=== PATIENT | female | born 1945 | race Caucasian/White ===

== ENCOUNTER 2016-05-24 10:12 | Inpatient (IN) | payer MEDICARE, OTHER ==
--- NOTE | ~2016-05-24 | DS ---
Discharge Summary [facility] [address] [place]. [address] NAME: FARIHA CROWDER : 45 STATUS : DIS IN PAT#: [id number] AGE: 70 ADM/REG DATE : 05/24/16 MR#: [id number] REPORT SERV DATE: 06/06/16 DICTATED BY: ZHANG GILLIAM DATE: 06/05/16 REPORT STATUS : Draft TRANSCRIBED BY: MODL DATE: 06/05/16 ADMISSION DATE: 05/24/2016 DISCHARGE DATE: 06/05/2016 ADDENDUM: This dictation is an addition to interim discharge summary dictated by Dr. Voss on 05/29/2016. I assumed care of the patient on 05/30/2016. At the time of my assumption of care, it was noted that the patient did have E coli ESBL, E coli UTI, as well as ESBL E coli bacteremia. Given her bacteremia per recommendations, the patient needed to be on IV antibiotics for a minimum of 10 days. At the time of my assumption of care, the patient was on antibiotic therapy for about three to four days. Therefore, given that fosfomycin is a once in 72 hour medication, that would not have been an acceptable management for her bacteremia. The alternative plan was to discharge the patient to a fdc for her to receive antibiotics; however, the patient adamantly refused going to a fdc. Given that the patient was kept in-house for completion of antibiotic therapy, today makes it day 10 of 10 of IV antibiotic therapy with meropenem. Her repeat blood culture is negative. The patient has remained hemodynamically stable. Her white count also has remained within normal limits. Given completion of IV antibiotic therapy, her negative repeat blood culture results, and her hemodynamic stability, the patient will be discharged home today. Plan has been discussed with the patient, who voices understanding and is agreeable with that plan. DISCHARGE DIAGNOSES: 1. Extended-spectrum beta-lactamase Escherichia coli bacteremia. 2. Extended-spectrum beta-lactamase Escherichia coli urinary tract infection. 3. Chronic obstructive pulmonary disease. 4. Hypertension. 5. Hypothyroidism. DISCHARGE PHYSICAL EXAMINATION: VITAL SIGNS: 115/55, pulse of 58, respiration 18, O2 saturation on 2 to 3 L nasal cannula 97%. GENERAL: The patient is lying in bed, in no acute distress. Appears stated age. HEENT: Normocephalic, atraumatic. Extraocular motors intact. Moist oral mucosa. NECK: Trachea midline and symmetric. No thyromegaly. No JVD noted. CHEST: Nontender to palpation. CARDIOVASCULAR: Regular rate and rhythm. S1, S2. No murmurs, rubs, or gallops. LUNGS: The patient had normal respiratory effort. Anterior lung guallpa clear to auscultation bilaterally. ABDOMEN: Positive bowel sounds. Nontender. Nondistended. EXTREMITIES: No cyanosis, no clubbing, no edema. DISCHARGE MEDICATIONS: Amlodipine 5 mg p.o. daily, aspirin 81 mg p.o. at bedtime, atorvastatin 80 mg p.o. at bedtime, folic acid 1 mg p.o. daily, Synthroid 75 mcg p.o. daily, lisinopril 20 mg p.o. daily, Advair one puff inhalation twice a day, vitamin B1 one tab daily, nitroglycerin 0.4 mg sublingual p.r.n., albuterol 3 mg inhalation four times a day p.r.n. DISPOSITION: The patient will be discharged home with home health. Discharge Summary [address] [address] NAME: FARIHA CROWDER : 45 STATUS : DIS IN PAT#: [id number] AGE: 70 ADM/REG DATE : 05/24/16 MR#: [id number] REPORT SERV DATE: 06/06/16 DICTATED BY: ZHANG GILLIAM DATE: 06/05/16 REPORT STATUS : Draft TRANSCRIBED BY: CLARK DATE: 06/05/16 ACTIVITY: As tolerated. DIET: The patient will have a regular diet. Greater than 30 minutes was spent planning discharge, dictation of note, medication reconciliation, discussion of care with the immigration case manager and nursing staff. DEBORAH/CLARK Zhang Gilliam MD / [id number] CC: MD ELVIN Cabrera
--- NOTE | ~2016-05-24 | HP ---
History And Physical [facility] [id number] [place]. [address] NAME: FARIHA CROWDER : 45 STATUS : ADM IN PAT#: [id number] AGE: 70 ADM/REG DATE : 05/24/16 MR#: [id number] REPORT SERV DATE: 05/24/16 DICTATED BY: TERRANCE BURNETT DATE: 05/24/16 REPORT STATUS : Draft TRANSCRIBED BY: MODDaniela DATE: 05/24/16 DATE OF ADMISSION: 05/24/2016 CHIEF COMPLAINT: Weakness, confusion, and hypokalemia. HISTORY OF PRESENT ILLNESS: The patient is a 70-year-old female. She apparently has a past medical history significant for some degree of anoxic brain injury. She has COPD and tobacco abuse. She has remote history of coronary artery disease and possible remote MD. She also has a past history significant for chronic arthritis, hypothyroidism, and an abdominal aortic aneurysm. She is brought here today by her family for several issues. They state that after her last hospitalization here, she was discharged to rehab and she has been home from rehab for three to four weeks. They state that she was unable to walk during her time at rehab, and since returning home, she has been assisted with transfers from the bed to wheelchair, but otherwise has been nonambulatory. History is from her family, they state last evening she seemed to be a little more combative than normal, getting more easily agitated, and over the past several days, she has declined much p.o. intake. This morning around 0430 hours, her mother assist her. She was able to answer questions briefly, but seem to be "drawn up" on the right side. When this did not resolve, additional family members evaluated and were concerned about a stroke and brought her to the emergency department. Her CT of the head is currently pending. The patient states that she does not remember anything about this morning, but as far as her mental faculties go, she was able to provide me with her complete past medical and surgical history, and was somewhat oriented to place and time. Because of her previous history of hypoxic brain damage, it is a little difficult to assess her underlying deficit, but the family was concerned about her episode this morning. Also, noted she had an elevated troponin on her lab work today. The patient denies any history of chest pain over the past several days and is currently denying any chest pain. She has apparently not been following up routinely with the communication skills instructor. She may have had a cardiac event as remote as 2001. Family is uncertain. PAST MEDICAL HISTORY: As covered above. PAST SURGICAL HISTORY: Hysterectomy, cholecystectomy, and bladder tack. CURRENT MEDICATIONS: Albuterol nebulizer t.i.d., Norvasc 5, aspirin 81, Advair 250/50 one puff twice a day, folic acid 1 mg, Synthroid 75, Prinivil 20, nitroglycerin 0.4, and vitamin B one. ALLERGIES: PENICILLIN, ALSO CONTRAST DYE, AND BENADRYL. FAMILY HISTORY: Father had a stroke. Siblings have heart disease. SOCIAL HISTORY: She is a one to one and a half pack per day. No EtOH. REVIEW OF SYSTEMS: HEENT: The patient is currently denying headache or dizziness. CARDIOVASCULAR: She is currently denying chest pain or palpitations. History And Physical [address] [address] NAME: FARIHA CROWDER : 45 STATUS : ADM IN [facility]#: [id number] AGE: 70 ADM/REG DATE : 05/24/16 MR#: [id number] REPORT SERV DATE: 05/24/16 DICTATED BY: TERRANCE BURNETT DATE: 05/24/16 REPORT STATUS : Draft TRANSCRIBED BY: CLARK DATE: 05/24/16 PULMONARY: She has a chronic smoker's cough, but nothing out of the ordinary. GI: Chief complains of no appetite. : She is not currently having any dysuria. She normally is apparently somewhat incontinent and wears Depend. NEUROMUSCULOSKELETAL: She complains for generalized arthritis. Otherwise review of systems is negative. PHYSICAL EXAMINATION: VITAL SIGNS: BP 134/68, pulse 65, temperature 97.9 on 2 L. GENERAL: She is awake. She is alert. She does answer questions appropriately. She got the year right. She got her birthday right. Her speech is intelligible and unslurred HEENT: Normocephalic, atraumatic. Sclerae nonicteric. NECK: Supple. HEART: Regular rate and rhythm. LUNGS: Shows some generalized decreased breath sounds throughout. ABDOMEN: Nontender. Nondistended. EXTREMITIES: No clubbing, cyanosis, or edema. NEUROLOGICAL: No obvious cranial nerve deficits. She is able to move herself in bed and roll. She has at least 3+ lower extremity strength being able to move her legs off the bed with right somewhat stronger than the left. LABORATORY DATA: Sodium 142, potassium 2.8, chloride 105, CO2 of 25, BUN and creatinine are 13 and 0.57, glucose of 100, calcium 7.9, and magnesium is 1.5. Troponin is 2.12. BNP is 203.6. White count is 8.7, H and H are 12.8 and 36.1, and platelets of 240. CT of the abdomen and pelvis showed her aneurysm is unchanged, otherwise negative. Chest x-ray showed cardiomegaly, otherwise negative. EKG showed a prolonged QT. No acute ST changes. Ammonia, urinalysis, and CT of the brain are currently pending. ASSESSMENT: Confusion this morning. Some change in personality. Elevated troponin without chest pain. Hypomagnesemia, hypokalemia, and recent medication noncompliance over the past two to three days being out of medicines. PLAN: 1. The patient is being admitted. 2. We will await the results for CT scan. She did have a fall at home within the past several days. If her CT is negative and her aneurysm is unchanged until her cardiac situation sorted out with a troponin of 2, she would probably be a candidate for anticoagulants. We will replace her magnesium. We will replace her potassium. We will continue to have PT evaluate and assess. Uncertain as to whether her mental status is truly changed whether may be secondary to other medical problems. We will await her current pending tests for further evaluation. RYAN/CLARK History And Physical [address] [address] NAME: FARIHA CROWDER : 45 STATUS : ADM IN [facility]#: [id number] AGE: 70 ADM/REG DATE : 05/24/16 MR#: [id number] REPORT SERV DATE: 05/24/16 DICTATED BY: TERRANCE BURNETT DATE: 05/24/16 REPORT STATUS : Draft TRANSCRIBED BY: CLARK DATE: 05/24/16 Terrance Burnett M.D. / [id number] CC: ELVIN ESPINO
--- NOTE | ~2016-05-24 | CN ---
Consultation Report [facility] [address] [place]. [address] NAME: FARIHA CROWDER : 45 STATUS : ADM IN PAT#: [id number] AGE: 70 ADM/REG DATE : 05/24/16 MR#: [id number] REPORT SERV DATE: 05/24/16 DICTATED BY: SAJI NATHAN DATE: 05/24/16 REPORT STATUS : Draft TRANSCRIBED BY: CLARK DATE: 05/24/16 DATE OF CONSULTATION: 05/24/2016 REASON FOR CONSULTATION: Troponinemia. HISTORY OF PRESENT ILLNESS: Ms. Crowder is a 70-year-old female with an extensive medical history, including CAD status post remote PCI, hypertension, active tobacco smoking (two packs per day or more), metabolic encephalopathy secondary to hypothyroidism in the recent past and baseline generalized weakness/debility, who was brought in by her family today given concerns for progressive weakness and debility at home after leaving rehab about one month ago. Per her and her family, who are poor historians collectively, she left rehab not in great shape. When at home, she has been fully nonambulatory and completely dependent on family members to complete her ADLs. This has progressed such that she has become more and more debilitated over the past one month as well as somewhat altered in mental status most recently, prompting presentation to [facility] for further evaluation and care. Here, her labs were checked and she was found to have a troponin of 2.1, prompting consultation today. In speaking with her, she denies having any chest pains or chest pressures whatsoever over the past month. She has not had any symptoms that are cardiac as far as she can tell. Her main issues include generalized weakness, which is a longstanding and progressive problem for her, as well as ongoing coughing in the setting of heavy tobacco smoking that is active. PAST MEDICAL HISTORY: As above. ALLERGIES: BENADRYL, CONTRAST DYE, AND PENICILLIN. FAMILY HISTORY: Noncontributory for premature cardiovascular disease. SOCIAL HISTORY: As above. HOME MEDICATIONS: 1. Albuterol. 2. Norvasc. 3. Aspirin. 4. Advair. 5. Folic acid. 6. Synthroid. 7. Prinivil. 8. Nitrostat as needed. 9. Vitamin B1. REVIEW OF SYSTEMS: As above, all other systems otherwise negative. PHYSICAL EXAMINATION: VITAL SIGNS: Blood pressure 125/74, temperature 97.9, pulse in the 50s to 60s on telemetry Consultation Report [facility] [address] [place]. [address] NAME: FARIHA CROWDER : 45 STATUS : ADM IN PAT#: [id number] AGE: 70 ADM/REG DATE : 05/24/16 MR#: [id number] REPORT SERV DATE: 05/24/16 DICTATED BY: SAJI NATHAN DATE: 05/24/16 REPORT STATUS : Draft TRANSCRIBED BY: CLARK DATE: 05/24/16 (sinus rhythm). GENERAL: Poor historian, no acute distress, well developed, well nourished. NEURO: Awake, alert and oriented x3; no focal deficits, appropriate mood. HEENT: Moist mucous membranes, anicteric sclerae, no nasal discharge. NECK: No JVD, no carotid bruit. RESPIRATORY: Constant coughing, diminished breath sounds throughout, occasional wheezes heard throughout. CARDIAC: Regular rate and rhythm. Normal S1 and S2. No murmurs, rubs, or gallops. ABD: Soft, nontender, nondistended, no rebound or guarding. EXTREMITIES: Warm, dry, 1+ pulses bilaterally in the lower extremities. SKIN: Grossly intact without obvious active rash. PERTINENT TEST FINDINGS: Chest x-ray negative for acute cardiopulmonary process. White blood cell count 8.7, hemoglobin 11.8, troponin 2.1, creatinine 0.57, potassium 2.8, albumin 2.3, magnesium 1.5, BNP 204. CT of the head without acute abnormality, CK 64, myoglobin 46. EKG: Sinus rhythm, normal mean QRS axis. No ischemic changes. No pathologic Q-waves. IMPRESSION AND PLAN: Ms. Crowder is a 70-year-old female with history of coronary artery disease status post remote percutaneous coronary intervention, active heavy tobacco smoking (two packs per day), bed ridden/nonambulatory, and poor historian, who presents with nonspecified symptoms of generalized weakness, coughing, and arm contracted per patient and family that have all been progressive over the past four weeks prompting presentation today, with an incidental troponin of 2.1, normal CK and normal MB fractions. She also has no ischemic changes on her EKG as well as no cardiac symptoms whatsoever as far as I can discern. Accordingly, I have the following recommendations. Trend enzymes. I believe this is a noncardiac elevation in enzymes. Her next troponin just resulted at 1.8, which is already down trending. She has no ischemic changes on her EKG, but we will recheck an EKG tomorrow morning. In the meantime, it will be fine to continue heparin drip until further enzymes and clinical data are ascertained. Outside of this, I highly recommend repleting electrolytes, in particular her potassium and magnesium. In addition, checking a TSH as well as a free T4 given that she has had a recent metabolic encephalopathy from markedly abnormal thyroid levels in February of this year. At that point in time, she also had significant weakness and generalized debility, and these were attributed at that time to poor control of her thyroid hormone. Finally, it will be helpful to check an echocardiogram for general assessment of her cardiac function. I have spoken with the family and they are fully in agreement with medical management of her cardiac issues at this point in time. VR/MODL Saji Nathan MD / [id number] Consultation Report [address] [address] NAME: FARIHA CROWDER : 45 STATUS : ADM IN PAT#: [id number] AGE: 70 ADM/REG DATE : 05/24/16 MR#: [id number] REPORT SERV DATE: 05/24/16 DICTATED BY: SAJI NATHAN DATE: 05/24/16 REPORT STATUS : Draft TRANSCRIBED BY: MODL DATE: 05/24/16 CC: MD SRINIVAS Lynne PAUL E
--- NOTE | ~2016-05-24 | IDS ---
Interim Discharge Summary [facility] [address] [place]. [address] NAME: FARIHA CROWDER : 45 STATUS : ADM IN [facility]#: [id number] AGE: 70 ADM/REG DATE : 05/24/16 MR#: [id number] REPORT SERV DATE: 05/29/16 DICTATED BY: DEMOND VOSS DATE: 05/29/16 REPORT STATUS : Draft TRANSCRIBED BY: MODL DATE: 05/29/16 ADMISSION DATE: 05/24/2016 DISCHARGE DATE: REASON FOR ADMISSION: ESBL E coli bacteremia, secondary to urinary tract infection, and toxic encephalopathy. HISTORY OF PRESENT ILLNESS: Please refer to Dr. Whipple's history and physical dated 05/25/2016 for complete details regarding the patient's admission. The patient is admitted to Hospitalist Service for management several issues. 1. Toxic encephalopathy, likely due to infection, this was resolved on day two of hospitalization. 2. ESBL E coli bacteremia, secondary to urinary tract infection, no sepsis. The patient has a history of having urinary tract infections. UA was positive. She grew out positive blood cultures on day #2, she was already on Rocephin starting on 05/24/2016, she had remained on Rocephin through 05/27/2016, until her blood cultures came back positive for being an ESBL E coli, for which she was then started on meropenem. She is currently on day three of meropenem at the time of this dictation. Her UA came back as being also positive for ESBL E coli and I have checked in with pharmacy and case management. The patient can be discharged with fosfomycin when she is medically stable. Repeat blood cultures so far are no growth to date, however, it is only been two days, given the fact that she may not have been appropriately treated since day #1. It would be best to make sure that her final urine cultures are negative and we have cleared her bacteremia. 3. Type 2 demand ischemia. The patient presented with a mildly elevated troponin, likely due to demand ischemia. [facility] was consulted and recommended getting an echocardiogram, which was done on 05/25/2016, which showed normal left EF of 60%. There was mild diastolic dysfunction. There was normal right ventricular chamber size and systolic function, trivial valve regurgitation, trivial pericardial effusion. 4. COPD without exacerbation. This has been stable. 5. History of thalamic CVA. PT recommended discharging her home when she is medically stable. DISPOSITION: Anticipate her home maybe on Sunday with fosfomycin. Case management is looking to try it here. Further disposition per oncoming hospitalist starting 05/30/2016. Thank you very much. MARY/CLARK Demond Voss MD / [id number] Interim Discharge Summary [address] [address] NAME: FARIHA CROWDER : 45 STATUS : ADM IN [facility]#: [id number] AGE: 70 ADM/REG DATE : 05/24/16 MR#: [id number] REPORT SERV DATE: 05/29/16 DICTATED BY: DEMOND VOSS DATE: 05/29/16 REPORT STATUS : Draft TRANSCRIBED BY: CLARK DATE: 05/29/16 CC: MD SRINIVAS Cabrera PAUL E
[~2016-05-24 10:12] MED LIST: ASAB PO; B12250T PO; CAT2 PO; CAT3 PO; KLONO1 PO; LEVOTHYROXIN112 MCG PO; LOP50 PO; LORTAB10 PO; NITROSTAT0.4 MG SL; PRIN20 PO; PROVENTSOL INH; VENTOLIN HFA INH; [UNRECOGNIZED DRUG - OTHER] PO
[2016-05-24 10:55] LABS: BASOPHILS 0.1 %; BASOPHILS ABSOLUTE 0.01 10/3/uL (0.0-0.16); EOSINOPHILS 0.1 %; EOSINOPHILS ABSOLUTE 0.01 10/3/uL (0.0-0.53); HEMATOCRIT 36.1 % (36.0-48.0); HEMOGLOBIN 11.8 g/dL (12.0-16.0); IMMATURE GRANULOCYTES 0.2 %; IMMATURE GRANULOCYTES ABSOLUTE 0.02 10/3/uL (0.0-0.11); LYMPHOCYTES 2.2 %; LYMPHOCYTES ABSOLUTE 0.19 10/3/uL (0.67-4.30); MEAN CORPUS HGB CONC 32.7 g/dL (32.0-36.0); MEAN CORPUSCULAR HEMOGLOB 28.3 pg (26.0-34.0); MEAN CORPUSCULAR VOLUME 86.6 fL (80-100); MEAN PLATELET VOLUME 8.9 fL (9.2-13.0); MONOCYTES 5.3 %; MONOCYTES ABSOLUTE 0.46 10/3/uL (0.21-1.20); NEUTROPHILS 92.1 %; NEUTROPHILS ABSOLUTE 8.04 10/3/uL (2.02-8.40); RBC DISTRIBUTION WIDTH 14.6 % (12.0-16.0); RED CELL COUNT 4.17 10/6/uL (4.0-5.6); WHITE BLOOD CELLS 8.7 10/3/uL (4.5-10.5)
[2016-05-24 10:57] LABS: MANUAL DIFF NO %; PLATELET COUNT 240 10/3/uL (150-400)
[2016-05-24 11:02] LABS: INTERNATIONAL NORMAL RATI 1.1 UNITS (-); PROTIME (NOT ORD) 14.1 SEC (12.0-14.5)
[2016-05-24 11:03] LABS: PARTIAL THROMBO TIME 30.4 SEC (22.5-37.2)
[2016-05-24 11:16] LABS: CHLORIDE, SERUM 105 MMOL/L (96-112); CO2 (CARBON DIOXIDE) 25 MMOL/L (24-34); CREATININE 0.57 MG/DL (0.55-1.02); GFR AFRICAN AMERICAN 109 ML/MIN (>=60); GFR NON AFRICAN AMERICAN 94 ML/MIN (>=60); SGOT(AST) 15 U/L (5-40); SGPT(ALT) 9 U/L (5-65); SODIUM, SERUM 142 MMOL/L (135-148); TOTAL BILIRUBIN 0.5 MG/DL (0-1.2); TOTAL PROTEIN 6.2 G/DL (6.0-8.5)
[2016-05-24 11:17] LABS: A/G RATIO 0.6 (0.7-1.9); ALBUMIN 2.3 G/DL (3.5-5.0); ALKALINE PHOSPHATASE 79 U/L (45-117); BUN (BLOOD UREA NITROGEN) 13 MG/DL (6-23); CALCIUM, SERUM 7.8 MG/DL (8.5-10.4); CHEST PAIN PROFILE TAT 0 Hrs 28 Mins; GLOBULIN 3.9 G/DL (2.5-4.1); GLUCOSE, SERUM 100 MG/DL (60-99); POTASSIUM, SERUM 2.8 MMOL/L (3.5-5.3); TROPONIN I 2.12 NG/ML (<0.05)
[2016-05-24] MEDS ORDERED: NORV5 PO (12:15)
[2016-05-24] MEDS ORDERED: FOLIC PO (12:15)
[2016-05-24] MEDS ORDERED: SYN075 PO (12:15)
[2016-05-24] MEDS ORDERED: ADVAIR250 INH (12:15)
[2016-05-24] MEDS ORDERED: HALF81 PO (12:15)
[2016-05-24] MEDS ORDERED: VITAMIN B-1 100MG PO (12:16)
[2016-05-24] MEDS ORDERED: ALBUTEROL0.083 % INH (12:17)
[2016-05-24] MEDS ORDERED: PRIN20 PO (12:17)
[2016-05-24] MEDS ORDERED: NITROSTAT0.4 MG SL (12:17)
[2016-05-24 16:40] LABS: TROPONIN I 1.82 NG/ML (<0.05)
[2016-05-24 18:10] LABS: PROCALCITONIN 23.03 ng/mL (<0.5)
[2016-05-25 06:11] LABS: BUN (BLOOD UREA NITROGEN) 15 MG/DL (6-23); CALCIUM, SERUM 8.1 MG/DL (8.5-10.4); CHLORIDE, SERUM 106 MMOL/L (96-112); CO2 (CARBON DIOXIDE) 25 MMOL/L (24-34); CREATININE 0.47 MG/DL (0.55-1.02); FREE T4 2.18 NG/DL (0.76-1.46); GFR AFRICAN AMERICAN 116 ML/MIN (>=60); GFR NON AFRICAN AMERICAN 100 ML/MIN (>=60); SODIUM, SERUM 142 MMOL/L (135-148)
[2016-05-25 06:13] LABS: CK-MB 1.4 NG/ML; CPK 36 U/L (0-200); GLUCOSE, SERUM 177 MG/DL (60-99); POTASSIUM, SERUM 3.5 MMOL/L (3.5-5.3); TROPONIN I 0.38 NG/ML (<0.05); ULTRASENSITIVE TSH 0.067 MCIU/ML (0.358-3.740)
[2016-05-25 16:45] LABS: ASCORBIC ACID (UR NOT ORDER) NEG (NEG); BILIRUBIN, URINE NEGATIVE (NEG); KETONE, URINE TRACE MG/DL (NEG); LEUKOCYTE ESTERASE(NOT OR MOD (NEG); WBC (NOT ORDERED) (RFLEX) 29 (0-5)
[2016-05-26 04:10] LABS: BUN (BLOOD UREA NITROGEN) 19 MG/DL (6-23); CHLORIDE, SERUM 108 MMOL/L (96-112); CO2 (CARBON DIOXIDE) 29 MMOL/L (24-34); CREATININE 0.64 MG/DL (0.55-1.02); GFR AFRICAN AMERICAN 105 ML/MIN (>=60); GFR NON AFRICAN AMERICAN 90 ML/MIN (>=60); GLUCOSE, SERUM 158 MG/DL (60-99); PHOSPHORUS, SERUM 2.2 MG/DL (2.5-4.5); POTASSIUM, SERUM 3.6 MMOL/L (3.5-5.3); SODIUM, SERUM 146 MMOL/L (135-148)
[2016-05-26 04:11] LABS: BASOPHILS 0 %; EOSINOPHILS 0 %; HEMOGLOBIN 9.9 g/dL (12.0-16.0); IMMATURE GRANULOCYTES 0.4 %; IMMATURE GRANULOCYTES ABSOLUTE 0.04 10/3/uL (0.0-0.11); LYMPHOCYTES 10.8 %; LYMPHOCYTES ABSOLUTE 1.04 10/3/uL (0.67-4.30); MEAN CORPUS HGB CONC 31.1 g/dL (32.0-36.0); MEAN CORPUSCULAR HEMOGLOB 27.5 pg (26.0-34.0); MEAN CORPUSCULAR VOLUME 88.3 fL (80-100); MEAN PLATELET VOLUME 9.1 fL (9.2-13.0); MONOCYTES 3.6 %; MONOCYTES ABSOLUTE 0.35 10/3/uL (0.21-1.20); NEUTROPHILS 85.2 %; NEUTROPHILS ABSOLUTE 8.17 10/3/uL (2.02-8.40); PLATELET COUNT 249 10/3/uL (150-400); RBC DISTRIBUTION WIDTH 14.6 % (12.0-16.0); WHITE BLOOD CELLS 9.6 10/3/uL (4.5-10.5)
[2016-05-26 04:12] LABS: HEMATOCRIT 31.8 % (36.0-48.0); MANUAL DIFF NO %
[2016-05-27 06:22] LABS: CALCIUM, SERUM 8.3 MG/DL (8.5-10.4); CHLORIDE, SERUM 108 MMOL/L (96-112); CO2 (CARBON DIOXIDE) 27 MMOL/L (24-34); CREATININE 0.39 MG/DL (0.55-1.02); GFR AFRICAN AMERICAN 123 ML/MIN (>=60); GFR NON AFRICAN AMERICAN 106 ML/MIN (>=60); PHOSPHORUS, SERUM 2.4 MG/DL (2.5-4.5); SODIUM, SERUM 144 MMOL/L (135-148)
[2016-05-27 06:23] LABS: BUN (BLOOD UREA NITROGEN) 15 MG/DL (6-23); GLUCOSE, SERUM 94 MG/DL (60-99); POTASSIUM, SERUM 4.4 MMOL/L (3.5-5.3)
[2016-05-31 04:04] LABS: HEMATOCRIT 33.9 % (36.0-48.0); HEMOGLOBIN 10.7 g/dL (12.0-16.0); MEAN CORPUS HGB CONC 31.6 g/dL (32.0-36.0); MEAN CORPUSCULAR HEMOGLOB 27.1 pg (26.0-34.0); MEAN CORPUSCULAR VOLUME 85.8 fL (80-100); MEAN PLATELET VOLUME 8.7 fL (9.2-13.0); RED CELL COUNT 3.95 10/6/uL (4.0-5.6); WHITE BLOOD CELLS 7.8 10/3/uL (4.5-10.5)
[2016-05-31 04:05] LABS: MANUAL DIFF YES %; PLATELET COUNT 330 10/3/uL (150-400)
[2016-05-31 04:18] LABS: A/G RATIO 0.6 (0.7-1.9); ALBUMIN 2.1 G/DL (3.5-5.0); CALCIUM, SERUM 8.3 MG/DL (8.5-10.4); CHLORIDE, SERUM 104 MMOL/L (96-112); CO2 (CARBON DIOXIDE) 27 MMOL/L (24-34); CREATININE 0.43 MG/DL (0.55-1.02); GFR AFRICAN AMERICAN 119 ML/MIN (>=60); GFR NON AFRICAN AMERICAN 103 ML/MIN (>=60); GLOBULIN 3.5 G/DL (2.5-4.1); GLUCOSE, SERUM 85 MG/DL (60-99); SGOT(AST) 33 U/L (5-40); SGPT(ALT) 60 U/L (5-65); SODIUM, SERUM 139 MMOL/L (135-148); TOTAL BILIRUBIN 0.4 MG/DL (0-1.2); TOTAL PROTEIN 5.6 G/DL (6.0-8.5)
[2016-05-31 04:22] LABS: ALKALINE PHOSPHATASE 109 U/L (45-117); BUN (BLOOD UREA NITROGEN) 11 MG/DL (6-23)
[2016-05-31 04:57] LABS: BAND NEUTROPHILS 1 %; EOSINOPHILS 1 %; EOSINOPHILS ABSOLUTE (CALC) 0.08 10/3/uL (0.0-0.53); IMMATURE GRANS ABSOLUTE (CALC) 0.39 10/3/uL (0.0-0.11); LYMPHOCYTES 16 %; LYMPHOCYTES ABSOLUTE (CALC) 1.25 10/3/uL (0.67-4.30); METAMYELOCYTES 1 %; MONOCYTES 10 %; MONOCYTES ABSOLUTE (CALC) 0.78 10/3/uL (0.21-1.20); MYELOCYTES 4 %; PLATELET ESTIMATE ADQ (ADEQUATE); SEGMENTED NEUTROPHIL (0) 67 %; TOTAL NUCLEATED CELLS 100
[2016-05-31 04:58] LABS: RBC MORPHOLOGY NORM (NORMAL)
[2016-06-01 04:26] LABS: HEMATOCRIT 34.6 % (36.0-48.0); HEMOGLOBIN 11.1 g/dL (12.0-16.0); MANUAL DIFF YES %; MEAN CORPUS HGB CONC 32.1 g/dL (32.0-36.0); MEAN CORPUSCULAR HEMOGLOB 27.5 pg (26.0-34.0); MEAN CORPUSCULAR VOLUME 85.9 fL (80-100); MEAN PLATELET VOLUME 8.7 fL (9.2-13.0); PLATELET COUNT 349 10/3/uL (150-400); RBC DISTRIBUTION WIDTH 15.1 % (12.0-16.0); RED CELL COUNT 4.03 10/6/uL (4.0-5.6); WHITE BLOOD CELLS 7.6 10/3/uL (4.5-10.5)
[2016-06-01 04:33] LABS: A/G RATIO 0.6 (0.7-1.9); ALBUMIN 2.2 G/DL (3.5-5.0); ALKALINE PHOSPHATASE 100 U/L (45-117); BUN (BLOOD UREA NITROGEN) 8 MG/DL (6-23); CALCIUM, SERUM 8.6 MG/DL (8.5-10.4); CHLORIDE, SERUM 106 MMOL/L (96-112); CO2 (CARBON DIOXIDE) 25 MMOL/L (24-34); CREATININE 0.33 MG/DL (0.55-1.02); GFR AFRICAN AMERICAN 130 ML/MIN (>=60); GFR NON AFRICAN AMERICAN 112 ML/MIN (>=60); GLOBULIN 3.7 G/DL (2.5-4.1); GLUCOSE, SERUM 88 MG/DL (60-99); POTASSIUM, SERUM 3.9 MMOL/L (3.5-5.3); SGOT(AST) 21 U/L (5-40); SGPT(ALT) 42 U/L (5-65); SODIUM, SERUM 141 MMOL/L (135-148); TOTAL BILIRUBIN 0.4 MG/DL (0-1.2); TOTAL PROTEIN 5.9 G/DL (6.0-8.5)
[2016-06-01 05:03] LABS: BAND NEUTROPHILS 1 %; EOSINOPHILS 1 %; EOSINOPHILS ABSOLUTE (CALC) 0.08 10/3/uL (0.0-0.53); IMMATURE GRANS ABSOLUTE (CALC) 0.38 10/3/uL (0.0-0.11); LYMPHOCYTES 18 %; LYMPHOCYTES ABSOLUTE (CALC) 1.37 10/3/uL (0.67-4.30); METAMYELOCYTES 3 %; MONOCYTES 9 %; MONOCYTES ABSOLUTE (CALC) 0.68 10/3/uL (0.21-1.20); MYELOCYTES 2 %; NEUTROPHILS ABSOLUTE (CALC) 5.09 10/3/uL (2.02-8.40); PLATELET ESTIMATE ADQ (ADEQUATE); RBC MORPHOLOGY NORM (NORMAL); SEGMENTED NEUTROPHIL (0) 66 %; TOTAL NUCLEATED CELLS 100
[2016-06-02 06:00] LABS: BASOPHILS 0.4 %; BASOPHILS ABSOLUTE 0.03 10/3/uL (0.0-0.16); EOSINOPHILS 1.2 %; HEMATOCRIT 32.1 % (36.0-48.0); HEMOGLOBIN 10.1 g/dL (12.0-16.0); IMMATURE GRANULOCYTES ABSOLUTE 0.34 10/3/uL (0.0-0.11); LYMPHOCYTES ABSOLUTE 1.69 10/3/uL (0.67-4.30); MEAN CORPUS HGB CONC 31.5 g/dL (32.0-36.0); MEAN CORPUSCULAR VOLUME 85.8 fL (80-100); MEAN PLATELET VOLUME 8.5 fL (9.2-13.0); MONOCYTES 9.9 %; MONOCYTES ABSOLUTE 0.84 10/3/uL (0.21-1.20); NEUTROPHILS 64.5 %; NEUTROPHILS ABSOLUTE 5.47 10/3/uL (2.02-8.40); PLATELET COUNT 336 10/3/uL (150-400); RED CELL COUNT 3.74 10/6/uL (4.0-5.6); WHITE BLOOD CELLS 8.5 10/3/uL (4.5-10.5)
[2016-06-02 06:01] LABS: MANUAL DIFF NO %
[2016-06-02 06:29] LABS: A/G RATIO 0.6 (0.7-1.9); BUN (BLOOD UREA NITROGEN) 9 MG/DL (6-23); CALCIUM, SERUM 8.3 MG/DL (8.5-10.4); CHLORIDE, SERUM 106 MMOL/L (96-112); CO2 (CARBON DIOXIDE) 25 MMOL/L (24-34); CREATININE 0.38 MG/DL (0.55-1.02); GFR AFRICAN AMERICAN 124 ML/MIN (>=60); GFR NON AFRICAN AMERICAN 107 ML/MIN (>=60); GLOBULIN 3.4 G/DL (2.5-4.1); GLUCOSE, SERUM 90 MG/DL (60-99); POTASSIUM, SERUM 4.2 MMOL/L (3.5-5.3); SGOT(AST) 15 U/L (5-40); SGPT(ALT) 31 U/L (5-65); SODIUM, SERUM 140 MMOL/L (135-148); TOTAL BILIRUBIN 0.7 MG/DL (0-1.2); TOTAL PROTEIN 5.4 G/DL (6.0-8.5)
[2016-06-02 06:30] LABS: ALKALINE PHOSPHATASE 87 U/L (45-117)
[2016-06-03 06:56] LABS: BASOPHILS 0.4 %; BASOPHILS ABSOLUTE 0.03 10/3/uL (0.0-0.16); EOSINOPHILS ABSOLUTE 0.08 10/3/uL (0.0-0.53); HEMATOCRIT 33.1 % (36.0-48.0); HEMOGLOBIN 10.5 g/dL (12.0-16.0); IMMATURE GRANULOCYTES 3.1 %; IMMATURE GRANULOCYTES ABSOLUTE 0.25 10/3/uL (0.0-0.11); LYMPHOCYTES 19.5 %; LYMPHOCYTES ABSOLUTE 1.58 10/3/uL (0.67-4.30); MEAN CORPUS HGB CONC 31.7 g/dL (32.0-36.0); MEAN CORPUSCULAR HEMOGLOB 27.1 pg (26.0-34.0); MEAN CORPUSCULAR VOLUME 85.5 fL (80-100); MEAN PLATELET VOLUME 8.5 fL (9.2-13.0); MONOCYTES 7.9 %; MONOCYTES ABSOLUTE 0.64 10/3/uL (0.21-1.20); NEUTROPHILS 68.1 %; NEUTROPHILS ABSOLUTE 5.54 10/3/uL (2.02-8.40); PLATELET COUNT 392 10/3/uL (150-400); RBC DISTRIBUTION WIDTH 15.1 % (12.0-16.0); RED CELL COUNT 3.87 10/6/uL (4.0-5.6); WHITE BLOOD CELLS 8.1 10/3/uL (4.5-10.5)
[2016-06-03 07:03] LABS: MANUAL DIFF NO %
[2016-06-03 07:11] LABS: A/G RATIO 0.5 (0.7-1.9); ALKALINE PHOSPHATASE 88 U/L (45-117); BUN (BLOOD UREA NITROGEN) 9 MG/DL (6-23); CALCIUM, SERUM 8.7 MG/DL (8.5-10.4); CHLORIDE, SERUM 104 MMOL/L (96-112); CO2 (CARBON DIOXIDE) 28 MMOL/L (24-34); CREATININE 0.41 MG/DL (0.55-1.02); GFR AFRICAN AMERICAN 121 ML/MIN (>=60); GFR NON AFRICAN AMERICAN 105 ML/MIN (>=60); GLOBULIN 3.8 G/DL (2.5-4.1); GLUCOSE, SERUM 86 MG/DL (60-99); POTASSIUM, SERUM 4.1 MMOL/L (3.5-5.3); SGOT(AST) 14 U/L (5-40); SGPT(ALT) 29 U/L (5-65); SODIUM, SERUM 140 MMOL/L (135-148); TOTAL BILIRUBIN 0.4 MG/DL (0-1.2); TOTAL PROTEIN 5.8 G/DL (6.0-8.5)
[2016-06-04 05:02] LABS: BASOPHILS 0.2 %; BASOPHILS ABSOLUTE 0.02 10/3/uL (0.0-0.16); EOSINOPHILS 1.2 %; HEMATOCRIT 32.7 % (36.0-48.0); HEMOGLOBIN 10.5 g/dL (12.0-16.0); IMMATURE GRANULOCYTES 1.9 %; IMMATURE GRANULOCYTES ABSOLUTE 0.16 10/3/uL (0.0-0.11); LYMPHOCYTES 21.2 %; LYMPHOCYTES ABSOLUTE 1.78 10/3/uL (0.67-4.30); MANUAL DIFF NO %; MEAN CORPUS HGB CONC 32.1 g/dL (32.0-36.0); MEAN CORPUSCULAR HEMOGLOB 27.4 pg (26.0-34.0); MEAN CORPUSCULAR VOLUME 85.4 fL (80-100); MEAN PLATELET VOLUME 8.6 fL (9.2-13.0); MONOCYTES 7.7 %; MONOCYTES ABSOLUTE 0.65 10/3/uL (0.21-1.20); NEUTROPHILS 67.8 %; NEUTROPHILS ABSOLUTE 5.68 10/3/uL (2.02-8.40); PLATELET COUNT 429 10/3/uL (150-400); RBC DISTRIBUTION WIDTH 15.1 % (12.0-16.0); RED CELL COUNT 3.83 10/6/uL (4.0-5.6); WHITE BLOOD CELLS 8.4 10/3/uL (4.5-10.5)
[2016-06-04 05:16] LABS: A/G RATIO 0.5 (0.7-1.9); ALKALINE PHOSPHATASE 91 U/L (45-117); BUN (BLOOD UREA NITROGEN) 9 MG/DL (6-23); CALCIUM, SERUM 8.5 MG/DL (8.5-10.4); CHLORIDE, SERUM 103 MMOL/L (96-112); CO2 (CARBON DIOXIDE) 28 MMOL/L (24-34); CREATININE 0.44 MG/DL (0.55-1.02); GFR AFRICAN AMERICAN 119 ML/MIN (>=60); GFR NON AFRICAN AMERICAN 102 ML/MIN (>=60); GLUCOSE, SERUM 91 MG/DL (60-99); SGOT(AST) 15 U/L (5-40); SGPT(ALT) 25 U/L (5-65); SODIUM, SERUM 141 MMOL/L (135-148); TOTAL BILIRUBIN 0.6 MG/DL (0-1.2)
[2016-06-05 04:20] LABS: BASOPHILS 0.2 %; BASOPHILS ABSOLUTE 0.02 10/3/uL (0.0-0.16); EOSINOPHILS 1.4 %; EOSINOPHILS ABSOLUTE 0.12 10/3/uL (0.0-0.53); HEMATOCRIT 33.1 % (36.0-48.0); HEMOGLOBIN 10.4 g/dL (12.0-16.0); IMMATURE GRANULOCYTES 1.7 %; IMMATURE GRANULOCYTES ABSOLUTE 0.15 10/3/uL (0.0-0.11); LYMPHOCYTES 23.9 %; LYMPHOCYTES ABSOLUTE 2.09 10/3/uL (0.67-4.30); MEAN CORPUS HGB CONC 31.4 g/dL (32.0-36.0); MEAN CORPUSCULAR HEMOGLOB 27.1 pg (26.0-34.0); MEAN CORPUSCULAR VOLUME 86.2 fL (80-100); MEAN PLATELET VOLUME 8.5 fL (9.2-13.0); MONOCYTES 6.8 %; NEUTROPHILS ABSOLUTE 5.78 10/3/uL (2.02-8.40); PLATELET COUNT 439 10/3/uL (150-400); RED CELL COUNT 3.84 10/6/uL (4.0-5.6); WHITE BLOOD CELLS 8.8 10/3/uL (4.5-10.5)
[2016-06-05 04:21] LABS: MANUAL DIFF NO %
[2016-06-05 04:33] LABS: A/G RATIO 0.5 (0.7-1.9); ALBUMIN 1.9 G/DL (3.5-5.0); BUN (BLOOD UREA NITROGEN) 12 MG/DL (6-23); CALCIUM, SERUM 8.4 MG/DL (8.5-10.4); CHLORIDE, SERUM 105 MMOL/L (96-112); CO2 (CARBON DIOXIDE) 26 MMOL/L (24-34); GFR AFRICAN AMERICAN 122 ML/MIN (>=60); GFR NON AFRICAN AMERICAN 106 ML/MIN (>=60); GLOBULIN 3.8 G/DL (2.5-4.1); GLUCOSE, SERUM 95 MG/DL (60-99); POTASSIUM, SERUM 4.4 MMOL/L (3.5-5.3); SGOT(AST) 17 U/L (5-40); SGPT(ALT) 25 U/L (5-65); SODIUM, SERUM 141 MMOL/L (135-148); TOTAL BILIRUBIN 0.3 MG/DL (0-1.2); TOTAL PROTEIN 5.7 G/DL (6.0-8.5)
[2016-06-05 04:39] LABS: ALKALINE PHOSPHATASE 79 U/L (45-117)
[2016-06-05] MEDS ORDERED: NYSTATPOW TOP (10:24)
[2016-06-05] MEDS ORDERED: LIPITOR80 MG PO (10:26)
== END 2016-06-05 17:48 | disposition home health service (06) | DRG 689 ==
LOC: ER 10:12 → 7NO 14:54
PROVIDERS: Emergency Medicine; Hospitalist; Internal Medicine
DX: N39.0 Urinary tract infection, site not specified (principal); G92 Toxic encephalopathy; G93.1 Anoxic brain damage, not elsewhere classified; R78.81 Bacteremia; I24.8 Other forms of acute ischemic heart disease; J44.9 Chronic obstructive pulmonary disease, unspecified; E83.42 Hypomagnesemia; F44.4 Conversion disorder with motor symptom or deficit; B96.20 Unspecified Escherichia coli [E. coli] as the cause of diseases classified elsewhere; I25.10 Atherosclerotic heart disease of native coronary artery without angina pectoris; E87.6 Hypokalemia; M19.90 Unspecified osteoarthritis, unspecified site; E03.9 Hypothyroidism, unspecified; F17.210 Nicotine dependence, cigarettes, uncomplicated; Z16.12 Extended spectrum beta lactamase (ESBL) resistance; Z90.710 Acquired absence of both cervix and uterus; Z90.49 Acquired absence of other specified parts of digestive tract; Z91.14 Patient's other noncompliance with medication regimen; Z88.0 Allergy status to penicillin; Z86.73 Personal history of transient ischemic attack (TIA), and cerebral infarction without residual deficits; Z87.440 Personal history of urinary (tract) infections; Z88.8 Allergy status to other drugs, medicaments and biological substances; Z91.041 Radiographic dye allergy status
CPT/HCPCS: 70450; 71010; 72100; 73522; 74176; 80048; 80053; 81001; 82140; 82550; 82553; 83735; 83874; 83880; 84100; 84145; 84439; 84443; 84484; 85025; 85610; 85730; 87040; 87077; 87086; 87150; 87186; 93005; 93306; 94640; 96365; 96375; 97110-GO; 97110-GP; 97116-GP; 97162-GP; 97165-GO; 97530-GP; 99291; A9270-GY; J2185; J2930